=== PATIENT | female | born 1975 | race Caucasian/White ===

== ENCOUNTER 2017-01-10 21:59 | Emergency (ER) | payer SELFPAY | END 2017-01-10 22:55 | disposition left against medical advice (07) | LOC: ER 21:59 | DX: Z53.21 Procedure and treatment not carried out due to patient leaving prior to being seen by health care provider (principal) ==

== ENCOUNTER 2017-02-24 15:38 | Emergency (ER) | payer SELFPAY ==
--- NOTE | 2017-03-01 10:38 | ER ---
ADMIT: 02/24/2017 RM/LOC: ER [facility] MR#: [id number] [address] [id number] GUILLERMINA DAVIS [address] [place] [address] Emergency Room Report SEX: F AGE: 41 : 1975 DATE: 02/24/2017 CHIEF COMPLAINT: Injury to right hand. HISTORY OF PRESENT ILLNESS: This is a 41-year-old, white female, who presents after smashing her hand in a car door yesterday. Complains of mild right hand pain. She has been drinking alcohol today. She has pain on movement. Also, has numbness into the small finger. COURSE IN THE EMERGENCY ROOM: The patient was seen and examined. She does have significant ecchymosis, tenderness, and swelling on the 4th and 5th metacarpals. She has good motor function. She is able to make a completely closed fist without any deviation of fingers. She has two point discrimination intact about the small finger; however, does say she has some numbness and tingling. No vascular compromise. Cap refill is brisk, uninjured above the wrist. Did get an x-ray of the right hand, significant for a distal 5th metacarpal fracture, nondisplaced. I did place her in an ulnar gutter splint. Neurovascularly intact following splint application. She was also given 600 mg of ibuprofen p.o. IMPRESSION: Closed distal 5th metacarpal fracture. DISPOSITION: The patient is to leave the splint on until she follows up with Dr. Khalil. She can certainly loosen it if she has any numbness or tingling throughout the rest of the day. Ibuprofen and Tylenol as needed for pain. Follow up with Dr. Khalil in 1 week. Keep splint clean and dry. Questions sought and answered to the best of my ability and to the patient's satisfaction. Discharged in stable condition. JAKE Campos / Hardy Wolfe MD / ed JOB #: [id number] CC: Hardy Wolfe MD, Attending Physician Daniel Khalil MD, Family Physician
== END 2017-02-24 17:00 | disposition home or self-care (01) ==
LOC: ER 15:38
DX: S62.306A Unspecified fracture of fifth metacarpal bone, right hand, initial encounter for closed fracture (principal); F17.210 Nicotine dependence, cigarettes, uncomplicated; X58.XXXA Exposure to other specified factors, initial encounter